=== PATIENT | female | born 1975 | race Caucasian/White ===

== ENCOUNTER → 2016-11-07 | Outpatient (CLI) | payer OTHER ==
[2016-11-07 14:04] LABS: Basophils % (A) 1 %; CH 29.4; CHCM 31.9; Eosinophils # (A) 0.2 k/uL (0-0.7); Eosinophils % (A) 3 %; HCT 46.2 % (34.0-46.0); HDW 2.61; HGB 14.5 gm/dL (11.4-16.0); Hypochromasia Slight; Luc # (Auto) 0.19; Luc % (Auto) 3; Lymphocytes # (A) 2.4 k/uL (1.0-4.8); Lymphocytes % (A) 33 %; MCHC 31.4 g/dL (31.0-37.0); MCV 92.5 fL (80.0-100.0); Mean Platelet Volume 7.4; Monocytes # (A) 0.6 k/uL (0-1.0); Monocytes % (A) 8 %; Neutrophils # (A) 3.9 k/uL (1.3-7.7); Neutrophils % (A) 54 %; RDW 13.2 % (11.5-15.5); WBC 7.3 k/uL (3.8-10.6); WBC (Perox) 7.99
== END | disposition home or self-care (01) ==
LOC: LABPAT 13:07
PROVIDERS: ATTEND Anesthesiology
DX: Z01.812 Encounter for preprocedural laboratory examination (principal)
CPT/HCPCS: 85025

== ENCOUNTER 2016-11-11 11:21 | Day surgery (SDC) | payer OTHER ==
--- NOTE | 2016-11-05 05:03 | HP ---
DATE OF ADMISSION: 11/11/2016 CHIEF COMPLAINT: Left inguinal hernia. HISTORY OF PRESENT ILLNESS: Patient is a 40-year-old female who was seen in the office yesterday with complaints of chronic pain in the left groin and lower abdomen. This is stabbing at times. She feels a subtle fullness at times. She had a recent CT scan which confirmed a fat-containing left inguinal hernia. She has chronic back pain as well. She was told by her neurologist that some of her symptoms are likely attributed to her left inguinal hernia. CT scan suggests the presence of an indirect hernia in that location. Denies nausea or vomiting. She does have heartburn. She also admits to seeing some hematemesis at times in the past. PAST MEDICAL HISTORY: 1. Chronic pain. 2. Anxiety. 3. Obesity. 4. Depression. 5. Asthma. PAST SURGICAL HISTORY: See list. MEDICATIONS: 1. Albuterol. 2. Baclofen. 3. Depo-Medrol. 4. Dulera. 5. Hydrocodone. 6. Prednisone. 7. Promethazine. 8. Propranolol. 9. Sumatriptan. 10. Trokendi. 11. Ventolin. ALLERGIES: PENICILLIN, MORPHINE. PHYSICAL EXAM: HEENT: Normocephalic, sclerae anicteric. CHEST: No deformities. ABDOMEN: Soft, nondistended, obese. Reducible left inguinal hernia noted. IMPRESSION: [id number]-old female with reducible left inguinal hernia. PLAN: Will proceed with robotic-assisted laparoscopic left inguinal herniorrhaphy with mesh, possible bilateral inguinal herniorrhaphy. The risks of bleeding, infection, nerve injury, bladder injury, bowel injury, chronic pain and numbness were discussed with the patient, who understands and wishes to proceed.
[2016-11-06 13:32] VITALS: BMI 45.5
[~2016-11-11 11:21] MED LIST: CLINDAMYCIN 900 MG in DEXTROSE 5% IN WATER 50 ML IVPB ONE; DEXAMETHASONE SOD PHOSPHATE 10 MG/ML 1 ML VIAL IV ONE; FAMOTIDINE 20 MG/2 ML VIAL IV PRN; LACTATED RINGERS 1,000 ML IV SCH; LEVOFLOXACIN 500MG-D5W PMX 500 MG in DEXTROSE/WATER 1 100ML.BAG IVPB ONE; LIDOCAINE 1% 20 ML VIAL (10MG/ML) FOR IV START INTRADERMA PRN; MIDAZOLAM 2 MG/2 ML VIAL IV PRN; ONDANSETRON 4 MG/2 ML VIAL IVP ONE; SCOPOLAMINE 1.5MG/72HR PATCH TRANSDERM ONE
[2016-11-11] MEDS ORDERED: HEPARIN SODIUM,PORCINE 5,000 UNIT/ML 1 ML VIAL SQ STA (11:50)
[2016-11-11] MEDS ORDERED: NEOSTIGMINE 1 MG/ML 10 ML VIAL ONE (12:25)
[2016-11-11] MEDS ORDERED: LABETALOL 5 MG/ML VIAL MDV ONE (12:25)
[2016-11-11] MEDS ORDERED: ROCURONIUM BROMIDE 10 MG/ML 10 ML VIAL IV ONE (12:25)
[2016-11-11] MEDS ORDERED: SUCCINYLCHOLINE CHLORIDE 100 MG/5 ML SYR IV ONE (12:25)
[2016-11-11] MEDS ORDERED: LIDOCAINE 1% INJ 10MG/ML (20 ML MDV) ONE (12:25)
[2016-11-11] MEDS ORDERED: PROPOFOL 10 MG/ML 20 ML VIAL IV ONE (12:25)
[2016-11-11] MEDS ORDERED: MIDAZOLAM 2 MG/2 ML VIAL ONE (12:25)
[2016-11-11] MEDS ORDERED: fentaNYL (PF) 50 MCG/ML 2 ML AMP ONE (12:25)
[2016-11-11] MEDS ORDERED: GLYCOPYRROLATE 0.2 MG/ML 2 ML VIAL ONE (12:25)
[2016-11-11] MEDS ORDERED: BUPIVACAIN-EPI 0.25%-1:200,000 30 ML VIAL SQ ONE ×2 (13:07→14:59)
[2016-11-11] MEDS ORDERED: LACTATED RINGERS 1,000 ML IV ONE (14:00)
[2016-11-11 15:10] VITALS: RESP 16; TEMP 97.4
[2016-11-11] MEDS: HYDROmorphone 1 MG/ML 1 ML SYRINGE IVP PRN ×4 (15:10→15:30)
[2016-11-11] MEDS ORDERED: HYDROcodone/APAP 5-325MG 1 EACH TAB PO PRN (15:22)
[2016-11-11] MEDS ORDERED: NALOXONE 0.4 MG/ML 1 ML VIAL IV PRN (15:22)
--- NOTE | 2016-11-11 15:28 | P.PCN ---
Date of Procedure: 11/11/16 Procedure(s) Performed: PREOPERATIVE DIAGNOSIS: Left inguinal hernia POSTOPERATIVE DIAGNOSIS: Left inguinal hernia PROCEDURE: Laparoscopic repair left inguinal hernia with the da Levi robot assistance SURGEON: Brandi EBL: Minimal ANESTHESIA: General COMPLICATIONS: None OPERATIVE PROCEDURE: Patient was placed in the operating table in the supine position. A Rushing catheter was placed. She was then placed in lithotomy. The abdomen was prepped and draped in usual sterile fashion. A small curvilinear supraumbilical incision was made. The fascia was retracted anteriorly with Zavalla forceps. The Veress needle was inserted. The saline drop test was normal. Insufflation took place to 15 mmHg. A 5 mm trocar was then inserted. 2 additional 8 mm trochars were placed in the right upper quadrant and left upper quadrant under visualization. The initial 5 was switched to a 12 mm trocar at that time under direct visualization. The robotic arms were then brought in and docked into place. The fenestrated bipolar was used in the left arm and the laparoscopic pauline was utilized in the right arm. A 30 12 mm scope was used in the up position. The peritoneal cavity was inspected. I could not visualized a defect on either right or left. The patient's preoperative CAT scan demonstrated the fat containing left inguinal hernia. An oblique incision was created in the peritoneum superior to the direct and indirect hernia space. Following that careful dissection of the preperitoneal space took place. This took place using both electrocautery, sharp dissection and primarily blunt dissection. The patient's hernia was a direct hernia. Hernia sac was dissected away from the hole within Hesselbach's triangle. The pubic tubercle was identified. Itz's ligament was dissected. Following the dissection took place laterally. There was no evidence of a indirect hernia. The peritoneum was dissected all the way off of the round ligament. A small lipoma was identified and reduced. Once we had adequate space the 15 x 10 progrip mesh was advanced into the preperitoneal space and flattened out appropriately to cover all potential hernia sites. No sutures were used. The peritoneal defect was then closed using a locking 2-0 Vicryl V LOC suture. The pneumoperitoneum was then evacuated. 2 small portions of fat were removed from the preperitoneal space and brought out through the 12 mm trocar site. The fascia at the 12 mm site was closed using a 0 Vicryl stitch and the Anand Jimenez technique. The skin of all 3 sites was closed using a 4-0 Monocryl stitch. Steri-Strips and sterile dressings were applied. DISPOSITION: Stable to recovery room
[2016-11-11] MEDS ORDERED: fentaNYL (PF) 50 MCG/ML 2 ML AMP IV ONE (15:45)
[2016-11-11] MEDS ORDERED: ONDANSETRON 4 MG/2 ML VIAL IVP ONE (16:11)
[2016-11-11] MEDS ORDERED: HYDROcodone/APAP 10-325MG 1 EACH TAB PO ONE ×2 (16:50→16:55)
[2016-11-11 17:07] VITALS: PULSE 95
[2016-11-11 17:38] VITALS: BP 110/66
== END 2016-11-11 18:05 | disposition home or self-care (01) ==
LOC: OR 11:21
PROVIDERS: ATTEND Surgery
DX: K40.90 Unilateral inguinal hernia, without obstruction or gangrene, not specified as recurrent (principal); F41.9 Anxiety disorder, unspecified; F32.9 Major depressive disorder, single episode, unspecified; J45.909 Unspecified asthma, uncomplicated; G89.29 Other chronic pain; M54.9 Dorsalgia, unspecified; F17.200 Nicotine dependence, unspecified, uncomplicated; E66.9 Obesity, unspecified; Z68.42 Body mass index [BMI] 45.0-49.9, adult; Z79.891 Long term (current) use of opiate analgesic; Z79.51 Long term (current) use of inhaled steroids; Z79.52 Long term (current) use of systemic steroids; Z79.899 Other long term (current) drug therapy; Z88.5 Allergy status to narcotic agent; Z88.0 Allergy status to penicillin
CPT/HCPCS: 49650; 81025; 86900; 86901; 86850; C1781; J2250; J1644; J1100; J2710; J2405; J2001; J3010; J1170; J0330; J2704

== ENCOUNTER 2016-11-12 14:13 | Observation (INO) | payer OTHER ==
[2016-11-12] MEDS ORDERED: SODIUM CHLORIDE 0.9% 1,000 ML IV STA (15:33)
[2016-11-12] MEDS ORDERED: HYDROmorphone 1 MG/ML 1 ML SYRINGE IVP STA (15:33)
[2016-11-12] MEDS ORDERED: ONDANSETRON 4 MG/2 ML VIAL IVP STA (15:33)
[2016-11-12] MEDS ORDERED: RX INFO: IV CONTRAST WAS GIVEN 1 EACH MISC MISCELLANE PRN (15:33)
[2016-11-12] MEDS ORDERED: PANTOPRAZOLE 40 MG/10 ML VIAL IVP STA (15:33)
[2016-11-12] MEDS ORDERED: ACETAMINOPHEN IV (For NPO) 1,000 MG in SALINE 1 100ML.BAG IVPB STA (15:34)
[2016-11-12] MEDS ORDERED: IPRATROPIUM-ALBUTEROL 3 ML NEB INHALATION STA (15:37)
--- NOTE | 2016-11-12 15:38 | ED ---
General Adult HPI - General Chief complaint: Abdominal Pain Stated complaint: Surgery Yesterday-Post Complications Time Seen by Provider: 11/12/16 15:20 Source: patient, RN notes reviewed Mode of arrival: wheelchair Limitations: no limitations - History of Present Illness Initial comments: Patient is a pleasant 41-year-old female presenting to the emergency department complaining of cough and vomiting and abdominal pain. Patient had left inguinal hernia repair done yesterday through laparoscopic appendectomy. Since that time symptoms worsen. Patient has discomfort of her abdomen diffusely, mostly left lower abdomen. Patient is nauseated and has vomited. Patient does have cough and rhinorrhea. Patient does feel somewhat short of breath. Patient has had subjective fevers. - Related Data Home Medications Medication Instructions Recorded Confirmed Albuterol Inhaler [Ventolin Hfa 1 - 2 puff INHALATION RT-Q6H PRN 11/06/16 Inhaler] Baclofen 10 mg PO BID PRN 11/06/16 11/12/16 Mometasone/Formoterol [Dulera 200 2 puff INHALATION RT-BID 11/11/16 11/12/16 Mcg/5 Mcg Inhaler] Previous Rx's Medication Instructions Recorded HYDROcodone/APAP 10-325MG [[place] 1 tab PO Q6H PRN #30 tab 11/11/16 10-325] Allergies Allergy/AdvReac Type Severity Reaction Status Date / Time adhesive tape Allergy Rash/Hives Verified 11/12/16 15:24 morphine Allergy Anaphylaxis Verified 11/12/16 15:24 Penicillins Allergy Anaphylaxis Verified 11/12/16 15:24 Review of Systems ROS Statement: Those systems with pertinent positive or pertinent negative responses have been documented in the HPI. ROS Other: All systems not noted in ROS Statement are negative. Constitutional: Reports: fever Eyes: Denies: eye pain ENT: Reports: throat pain Respiratory: Reports: cough, dyspnea Cardiovascular: Reports: chest pain Endocrine: Reports: fatigue Gastrointestinal: Reports: abdominal pain, nausea, vomiting Genitourinary: Denies: dysuria Musculoskeletal: Denies: back pain Skin: Denies: rash Neurological: Denies: headache Past Medical History Past Medical History: Asthma, Cancer, GERD/Reflux, Musculoskeletal Disorder, Thyroid Disorder Additional Past Medical History / Comment(s): Hx cervical cancer in 1999, currently has 3 bulging discs in neck, chronic back pain, and pain in left elbow. States questionable low thyroid. History of Any Multi-Drug Resistant Organisms: None Reported Past Surgical History: Tubal Ligation Additional Past Surgical History / Comment(s): Cervix surgery. Past Anesthesia/Blood Transfusion Reactions: No Reported Reaction Past Psychological History: Anxiety, Depression, PTSD Additional Psychological History / Comment(s): States Manic Depression Smoking Status: Current every day smoker Past Alcohol Use History: None Reported Past Drug Use History: Marijuana Additional Drug Use History / Comment(s): States uses medical marijuana daily. Advised not to use 24 hrs prior to surgery. - Past Family History Mother Family Medical History: No Reported History General Exam Limitations: no limitations General appearance: alert Head exam: Present: atraumatic, normocephalic Eye exam: Present: normal appearance, PERRL ENT exam: Present: normal oropharynx Neck exam: Present: normal inspection Respiratory exam: Present: wheezes Cardiovascular Exam: Present: tachycardia GI/Abdominal exam: Present: soft, tenderness (Moderate left lower quadrant tenderness.), guarding (Left lower abdomen), normal bowel sounds. Absent: distended, rebound, rigid, pulsatile mass Extremities exam: Present: normal inspection. Absent: pedal edema, calf tenderness Neurological exam: Present: alert Psychiatric exam: Present: normal affect, normal mood Skin exam: Absent: rash Course Vital Signs 11/12/16 11/12/16 11/12/16 14:40 16:16 16:23 Temperature 99.3 F 98.2 F Pulse Rate 115 H 80 80 Respiratory 18 18 Rate Blood Pressure 139/84 111/65 O2 Sat by Pulse 96 94 L Oximetry 11/12/16 16:33 Temperature Pulse Rate 69 Respiratory Rate Blood Pressure O2 Sat by Pulse Oximetry EKG Findings - EKG Comments: EKG Findings:: Normal sinus rhythm and 94. Normal intervals. Normal axis. Normal QRS. Normal ST-T. Medical Decision Making - Medical Decision Making Patient reexamined and has continued abdominal discomfort. Other symptoms have improved. Abdomen is soft with moderate diffuse tenderness. Case discussed with Dr. Rivera who will admit his patient for observation. - Lab Data Result diagrams: 11/12/16 16:00 11/12/16 16:00 Lab Results 11/12/16 11/12/16 11/12/16 Range/Units 16:00 16:00 16:00 WBC 8.2 (3.8-10.6) k/uL RBC 4.70 (3.80-5.40) m/uL Hgb 14.0 (11.4-16.0) gm/dL Hct 42.3 (34.0-46.0) % MCV 90.0 (80.0-100.0) fL MCH 29.7 (25.0-35.0) pg MCHC 33.1 (31.0-37.0) g/dL RDW 13.6 (11.5-15.5) % Plt Count 260 (150-450) k/uL Neutrophils % 66 % Lymphocytes % 24 % Monocytes % 8 % Eosinophils % 1 % Basophils % 0 % Neutrophils # 5.4 (1.3-7.7) k/uL Lymphocytes # 1.9 (1.0-4.8) k/uL Monocytes # 0.6 (0-1.0) k/uL Eosinophils # 0.1 (0-0.7) k/uL Basophils # 0.0 (0-0.2) k/uL PT 11.3 (9.0-12.0) sec INR 1.1 (<1.1) APTT 23.1 (22.0-30.0) sec Sodium 143 (137-145) mmol/L Potassium 3.7 (3.5-5.1) mmol/L Chloride 107 (98-107) mmol/L Carbon Dioxide 25 (22-30) mmol/L Anion Gap 11 mmol/L BUN 10 (7-17) mg/dL Creatinine 0.70 (0.52-1.04) mg/dL Est GFR (MDRD) Af Amer >60 (>60 ml/min/1.73 sqM) Est GFR (MDRD) Non-Af >60 (>60 ml/min/1.73 sqM) Glucose 96 (74-99) mg/dL Calcium 9.5 (8.4-10.2) mg/dL Total Bilirubin 0.6 (0.2-1.3) mg/dL AST 16 (14-36) U/L ALT 32 (9-52) U/L Alkaline Phosphatase 101 (38-126) U/L Total Protein 6.9 (6.3-8.2) g/dL Albumin 3.9 (3.5-5.0) g/dL Amylase <30 L (30-110) U/L Lipase 29 (23-300) U/L Influenza Type A RNA (Not Detectd) Influenza Type B (PCR) (Not Detectd) Group A Strep Rapid (Negative) 11/12/16 11/12/16 Range/Units 16:20 16:20 WBC (3.8-10.6) k/uL RBC (3.80-5.40) m/uL Hgb (11.4-16.0) gm/dL Hct (34.0-46.0) % MCV (80.0-100.0) fL MCH (25.0-35.0) pg MCHC (31.0-37.0) g/dL RDW (11.5-15.5) % Plt Count (150-450) k/uL Neutrophils % % Lymphocytes % % Monocytes % % Eosinophils % % Basophils % % Neutrophils # (1.3-7.7) k/uL Lymphocytes # (1.0-4.8) k/uL Monocytes # (0-1.0) k/uL Eosinophils # (0-0.7) k/uL Basophils # (0-0.2) k/uL PT (9.0-12.0) sec INR (<1.1) APTT (22.0-30.0) sec Sodium (137-145) mmol/L Potassium (3.5-5.1) mmol/L Chloride (98-107) mmol/L Carbon Dioxide (22-30) mmol/L Anion Gap mmol/L BUN (7-17) mg/dL Creatinine (0.52-1.04) mg/dL Est GFR (MDRD) Af Amer (>60 ml/min/1.73 sqM) Est GFR (MDRD) Non-Af (>60 ml/min/1.73 sqM) Glucose (74-99) mg/dL Calcium (8.4-10.2) mg/dL Total Bilirubin (0.2-1.3) mg/dL AST (14-36) U/L ALT (9-52) U/L Alkaline Phosphatase (38-126) U/L Total Protein (6.3-8.2) g/dL Albumin (3.5-5.0) g/dL Amylase (30-110) U/L Lipase (23-300) U/L Influenza Type A RNA Not Detected (Not Detectd) Influenza Type B (PCR) Not Detected (Not Detectd) Group A Strep Rapid Negative (Negative) - Radiology Data Radiology results: report reviewed (Computed tomography scan of the chest and abdomen show no acute process.) Disposition Clinical Impression: Abdominal pain Disposition: ADMITTED IP TO THIS HOSP
[2016-11-12 16:09] LABS: Basophils % (A) 0 %; CH 29.7; CHCM 33.2; Eosinophils # (A) 0.1 k/uL (0-0.7); Eosinophils % (A) 1 %; HCT 42.3 % (34.0-46.0); Luc # (Auto) 0.14; Luc % (Auto) 2; Lymphocytes # (A) 1.9 k/uL (1.0-4.8); Lymphocytes % (A) 24 %; MCH 29.7 pg (25.0-35.0); MCHC 33.1 g/dL (31.0-37.0); Mean Platelet Volume 7.6; Monocytes # (A) 0.6 k/uL (0-1.0); Monocytes % (A) 8 %; Neutrophils # (A) 5.4 k/uL (1.3-7.7); Neutrophils % (A) 66 %; RDW 13.6 % (11.5-15.5); WBC 8.2 k/uL (3.8-10.6); WBC (Perox) 8.52
[2016-11-12 16:17] LABS: ALT 32 U/L (9-52); AST 16 U/L (14-36); Alkaline Phosphatase 101 U/L (38-126); Amylase <30 U/L (30-110); Anion Gap 11 mmol/L; Blood Urea Nitrogen 10 mg/dL (7-17); Calcium 9.5 mg/dL (8.4-10.2); Carbon Dioxide 25 mmol/L (22-30); Chloride 107 mmol/L (98-107); Glucose 96 mg/dL (74-99); Non-African American GFR(MDRD) >60 (>60 ml/min/1.73 sqM); Potassium 3.7 mmol/L (3.5-5.1); Sodium 143 mmol/L (137-145); Total Bilirubin 0.6 mg/dL (0.2-1.3); Total Protein 6.9 g/dL (6.3-8.2)
[2016-11-12 16:23] LABS: INR 1.1 (<1.1); Partial Thromboplastin Time 23.1 sec (22.0-30.0); Prothrombin Time 11.3 sec (9.0-12.0)
--- NOTE | 2016-11-12 17:33 | CT ---
EXAMINATION TYPE: CT abdomen pelvis w con DATE OF EXAM: 11/12/2016 5:13 PM COMPARISON: Prior CT abdomen pelvis 12 September 2016 HISTORY: Pt states of fever and abdominal pain after hernia repair on 11/11/16. CT DLP: 3568.3 mGycm Automated exposure control for dose reduction was used. TECHNIQUE: Helical acquisition of images was performed from the lung bases through the pelvis. CONTRAST: Performed without Oral Contrast and with IV Contrast, patient injected with 100 mL of Omnipaque 350. FINDINGS: Within the subcutaneous fat in the left lower quadrant there is lucency, lucency also prese nt along the umbilical region compatible with prior laparoscopy, small amount of free air also presen t within the abdomen. Small amount of hypodense fluid also present in both lower quadrant compatible with local hemorrhage. LUNG BASES: Minimal dependent atelectatic changes are present. No pleural or pericardial effusion. LIVER/GB: The liver is enlarged. Gallbladder is normal. PANCREAS: No significant abnormality is seen. SPLEEN: No significant abnormality is seen. ADRENALS: No significant abnormality is seen. KIDNEYS: No significant interval change is seen. RETROPERITONEAL ADENOPATHY: None visualized REPRODUCTIVE ORGANS: No significant abnormality is seen URINARY BLADDER: No significant abnormality is seen. PELVIC ADENOPATHY: None visualized. OSSEOUS STRUCTURES: No significant interval change is seen. BOWEL: No significant abnormality is seen. OTHER: There is a small hiatal hernia. IMPRESSION: FINDINGS ARE THOUGHT LIKELY TO BE POSTOPERATIVE.
--- NOTE | 2016-11-12 17:44 | CT ---
EXAMINATION TYPE: CT angio chest DATE OF EXAM: 11/12/2016 5:13 PM COMPARISON: Abdominal and pelvic CT same date HISTORY: Pt states of fever and abdominal pain after hernia repair on 11/11/16. CT DLP: 3568.3 mGycm Automated exposure control for dose reduction was used. CONTRAST: CTA scan of the thorax is performed with IV Contrast, patient injected with 100 mL of Omnipaque 350, pulmonary embolism protocol. MIP images are created and reviewed. 3D reconstructed images are creat ed on an independent workstation and reviewed. FINDINGS: Minimal pneumoperitoneum is likely postoperative. Lung bases show atelectatic changes. LUNGS: The lungs are grossly clear, there is no concerning parenchymal mass or nodule identified. T here is no pleural effusion or pneumothorax seen. The tracheobronchial tree is patent. AORTA: No additional significant abnormality is seen. MEDIASTINUM: There is borderline satisfactory enhancement of the pulmonary artery and its branches, t here is no CT evidence for pulmonary embolism. There are no greater than 1 cm hilar or mediastinal l ymph nodes. No pericardial effusion is seen. Pulmonary artery is mildly prominent, correlate for po ssible pulmonary artery hypertension. OTHER: No additional significant abnormality is seen. Liver is thought likely to be enlarged, there may be fatty infiltration of the liver. IMPRESSION: PULMONARY ARTERY APPEARS MILDLY PROMINENT. PULMONARY EMBOLISM IS NOT EVIDENT WITH LIMITATIONS TO THE EXAM. LIKELY THERE IS POSTOPERATIVE PNEUMOPERITONEUM.
[2016-11-12] MEDS ORDERED: NALOXONE 0.4 MG/ML 1 ML VIAL IV PRN (18:16)
[2016-11-12] MEDS ORDERED: ACETAMINOPHEN TAB 325 MG TAB PO PRN (18:16)
[2016-11-12] MEDS: HYDROmorphone 1 MG/ML 1 ML SYRINGE IV PRN ×2 (18:32→22:41)
[2016-11-12 19:05] LABS: Appearance,Urine Clear (Clear); Bilirubin,Urine Negative (Negative); Glucose,Urine (UA) Negative (Negative); Ketones,Urine Trace (Negative); Leukocyte Esterase,Urine Negative (Negative); Nitrite,Urine Negative (Negative); PH, Urine 5.5 (5.0-8.0); Protein,Urine Negative (Negative); Specific Gravity,Urine 1.032 (1.001-1.035); UA Billing (MACRO vs. MICRO) CHEM; Urobilinogen,Urine <2.0 mg/dL (<2.0)
[2016-11-12] MEDS: SODIUM CHLORIDE 0.9% 1,000 ML IV SCH (22:40)
[2016-11-13] MEDS: HYDROmorphone 1 MG/ML 1 ML SYRINGE IV PRN ×6 (02:48→20:26)
[2016-11-13] MEDS: ONDANSETRON 4 MG/2 ML VIAL IVP PRN ×2 (02:49→16:18)
[2016-11-13] MEDS: PANTOPRAZOLE 40 MG/10 ML VIAL IV SCH (07:40)
[2016-11-13 07:53] LABS: Basophils # (A) 0.1 k/uL (0-0.2); Basophils % (A) 1 %; CH 29.4; CHCM 31.7; Eosinophils # (A) 0.1 k/uL (0-0.7); Eosinophils % (A) 1 %; HCT 41.8 % (34.0-46.0); HDW 2.66; HGB 12.9 gm/dL (11.4-16.0); Hypochromasia Slight; Luc # (Auto) 0.13; Luc % (Auto) 1; Lymphocytes # (A) 2.8 k/uL (1.0-4.8); Lymphocytes % (A) 23 %; MCH 28.7 pg (25.0-35.0); MCHC 30.9 g/dL (31.0-37.0); MCV 92.8 fL (80.0-100.0); Mean Platelet Volume 8.3; Monocytes # (A) 0.7 k/uL (0-1.0); Monocytes % (A) 6 %; Neutrophils # (A) 8.3 k/uL (1.3-7.7); Neutrophils % (A) 68 %; RDW 13.6 % (11.5-15.5); WBC 12.1 k/uL (3.8-10.6); WBC (Perox) 12.27
[2016-11-13 08:04] LABS: ALT 34 U/L (9-52); AST 15 U/L (14-36); Alkaline Phosphatase 87 U/L (38-126); Anion Gap 11 mmol/L; Blood Urea Nitrogen 11 mg/dL (7-17); Carbon Dioxide 24 mmol/L (22-30); Chloride 107 mmol/L (98-107); Glucose 86 mg/dL (74-99); Non-African American GFR(MDRD) >60 (>60 ml/min/1.73 sqM); Sodium 142 mmol/L (137-145); Total Bilirubin 0.6 mg/dL (0.2-1.3); Total Protein 6.5 g/dL (6.3-8.2)
[2016-11-13] MEDS: SODIUM CHLORIDE 0.9% 1,000 ML IV SCH ×3 (09:07→20:31)
[2016-11-13] MEDS ORDERED: CALCIUM CARBONATE LIQUID 500 MG/5 ML CUP PO PRN (10:05)
[2016-11-13] MEDS ORDERED: BENZOCAINE/MENTHOL LOZENG 1 EACH LOZENGE MUCOUS MEM PRN (10:05)
--- NOTE | 2016-11-13 20:31 | P.GSHP ---
History of Present Illness H&P Date: 11/13/16 Chief Complaint: Postoperative abdominal pain and nausea Patient underwent elective laparoscopic left internal hernia on Friday. She came back to the hospital yesterday evening with complaints of pain. She is also having complaints of nausea and vomiting, and reflux. She describes constipation. She does feel better today than she did yesterday. White blood cell count slightly elevated at 12.1. She had subjective fevers initially. She is tolerating a liquid diet at this time. Initially was having some trouble voiding but that is improved. Denies rectal bleeding or melena. No hematuria. She had a CAT scan of the abdomen and pelvis that was reviewed. Postoperative changes are noted without hematoma or evident complication. - Review of Systems Comment: The patient denies any acute changes in his vision or hearing, no dysphagia or odynophagia, no chest pain or shortness of breath, no dysuria or hematuria, no headache, no runny nose, no rectal bleeding or melena, no unexplained weight loss Past Medical History Past Medical History: Asthma, Cancer, GERD/Reflux, Musculoskeletal Disorder, Thyroid Disorder Additional Past Medical History / Comment(s): Hx cervical cancer in 1999, currently has 3 bulging discs in neck, chronic back pain, and pain in left elbow. States questionable low thyroid. History of Any Multi-Drug Resistant Organisms: None Reported Past Surgical History: Tubal Ligation Additional Past Surgical History / Comment(s): Cervix surgery. 11-11-16 lap lt inguinal hernia repair Past Anesthesia/Blood Transfusion Reactions: No Reported Reaction Past Psychological History: Anxiety, Depression, PTSD Additional Psychological History / Comment(s): States Manic Depression Smoking Status: Current every day smoker Past Alcohol Use History: None Reported Past Drug Use History: Marijuana Additional Drug Use History / Comment(s): States uses medical marijuana daily.last used 11-12-16 0700 - Past Family History Mother Family Medical History: Diabetes Mellitus, Osteoarthritis (OA) Father Family Medical History: Coronary Artery Disease (CAD), Diabetes Mellitus Additional Family Medical History / Comment(s): 2 open heart sx, 1 leg amputated Medications and Allergies Home Medications Medication Instructions Recorded Confirmed Type Albuterol Inhaler [Ventolin Hfa 1 - 2 puff INHALATION RT-Q6H PRN 11/06/16 History Inhaler] Baclofen 10 mg PO BID PRN 11/06/16 11/12/16 History Mometasone/Formoterol [Dulera 200 2 puff INHALATION RT-BID 11/11/16 11/12/16 History Mcg/5 Mcg Inhaler] Allergies Allergy/AdvReac Type Severity Reaction Status Date / Time adhesive tape Allergy Rash/Hives Verified 11/12/16 15:24 morphine Allergy Anaphylaxis Verified 11/12/16 15:24 Penicillins Allergy Anaphylaxis Verified 11/12/16 15:24 Surgical - Exam Vital Signs Temp Pulse Resp BP Pulse Ox 99.3 F 115 H 18 139/84 96 11/12/16 14:40 11/12/16 14:40 11/12/16 14:40 11/12/16 14:40 11/12/16 14:40 Physical exam: General: Well-developed, well-nourished HEENT: Normocephalic, sclerae nonicteric Abdomen: Left lower quadrant tenderness noted, incisions clean and dry, nondistended Extremities: No edema Neuro: Alert and oriented Results - Labs 11/13/16 07:31 11/13/16 07:31 Abnormal Lab Results - Last 24 Hours (Table) 11/13/16 Range/Units 07:31 WBC 12.1 H (3.8-10.6) k/uL MCHC 30.9 L (31.0-37.0) g/dL Neutrophils # 8.3 H (1.3-7.7) k/uL Microbiology - Last 24 Hours (Table) 11/12/16 18:45 Urine Culture - Final Urine,Catheterized Diabetes panel 11/13/16 Range/Units 07:31 Sodium 142 (137-145) mmol/L Potassium 4.0 (3.5-5.1) mmol/L Chloride 107 (98-107) mmol/L Carbon Dioxide 24 (22-30) mmol/L BUN 11 (7-17) mg/dL Creatinine 0.76 (0.52-1.04) mg/dL Glucose 86 (74-99) mg/dL Calcium 9.0 (8.4-10.2) mg/dL AST 15 (14-36) U/L ALT 34 (9-52) U/L Alkaline Phosphatase 87 (38-126) U/L Total Protein 6.5 (6.3-8.2) g/dL Albumin 3.6 (3.5-5.0) g/dL Calcium panel 11/13/16 Range/Units 07:31 Calcium 9.0 (8.4-10.2) mg/dL Albumin 3.6 (3.5-5.0) g/dL Pituitary panel 11/13/16 Range/Units 07:31 Sodium 142 (137-145) mmol/L Potassium 4.0 (3.5-5.1) mmol/L Chloride 107 (98-107) mmol/L Carbon Dioxide 24 (22-30) mmol/L BUN 11 (7-17) mg/dL Creatinine 0.76 (0.52-1.04) mg/dL Glucose 86 (74-99) mg/dL Calcium 9.0 (8.4-10.2) mg/dL Adrenal panel 11/13/16 Range/Units 07:31 Sodium 142 (137-145) mmol/L Potassium 4.0 (3.5-5.1) mmol/L Chloride 107 (98-107) mmol/L Carbon Dioxide 24 (22-30) mmol/L BUN 11 (7-17) mg/dL Creatinine 0.76 (0.52-1.04) mg/dL Glucose 86 (74-99) mg/dL Calcium 9.0 (8.4-10.2) mg/dL Total Bilirubin 0.6 (0.2-1.3) mg/dL AST 15 (14-36) U/L ALT 34 (9-52) U/L Alkaline Phosphatase 87 (38-126) U/L Total Protein 6.5 (6.3-8.2) g/dL Albumin 3.6 (3.5-5.0) g/dL Assessment and Plan (1) Abdominal pain Narrative/Plan: Will advance diet. Add Toradol for pain control. Minimize Dilaudid use which is contributing to her nausea and vomiting. We'll add a stool softener. Probable discharge tomorrow morning. Status: Acute
[2016-11-13] MEDS ORDERED: MAGNESIUM HYDROXIDE 2,400 MG/10 ML CUP PO PRN (20:32)
[2016-11-13] MEDS: KETOROLAC 30 MG/ML 1 ML VIAL IVP SCH (23:56)
[2016-11-14] MEDS: HYDROcodone/APAP 10-325MG 1 EACH TAB PO PRN ×2 (03:40→10:47)
[2016-11-14] MEDS: KETOROLAC 30 MG/ML 1 ML VIAL IVP SCH ×2 (05:47→14:42)
[2016-11-14 08:02] VITALS: BP 103/77; PULSE 66; RESP 18; TEMP 98
[2016-11-14] MEDS: HYDROmorphone 1 MG/ML 1 ML SYRINGE IV PRN (08:21)
[2016-11-14] MEDS: PANTOPRAZOLE 40 MG/10 ML VIAL IV SCH (10:50)
[2016-11-14] MEDS: SODIUM CHLORIDE 0.9% 1,000 ML IV SCH (14:41)
== END 2016-11-14 14:09 | disposition home or self-care (01) ==
LOC: EC 14:13 → 5MS5E 18:18
PROVIDERS: ADMIT Surgery; ATTEND Surgery
DX: G89.18 Other acute postprocedural pain (principal); R10.32 Left lower quadrant pain; K91.0 Vomiting following gastrointestinal surgery; Y83.8 Other surgical procedures as the cause of abnormal reaction of the patient, or of later complication, without mention of misadventure at the time of the procedure; F17.200 Nicotine dependence, unspecified, uncomplicated; F31.9 Bipolar disorder, unspecified; F43.10 Post-traumatic stress disorder, unspecified; J45.909 Unspecified asthma, uncomplicated; K21.9 Gastro-esophageal reflux disease without esophagitis; K59.00 Constipation, unspecified; Z85.41 Personal history of malignant neoplasm of cervix uteri; Z79.899 Other long term (current) drug therapy
CPT/HCPCS: 36415; 94640; 93005; 80053 ×2; 82150; 83690; 85025 ×2; 85610; 85730; 81003; 87040; 87086; 87081; 87430; 87502; 71275; 74177; 99285; 96374; 96375 ×2; 96376; 96361 ×2; G0378 ×3; Q9967; J2405 ×2; J1885 ×2; J1170 ×3; J0131; C9113 ×3